=== PATIENT | female | born 1945 | race Caucasian/White ===

== ENCOUNTER 2016-11-17 08:17 | Emergency (ER) | payer OTHER ==
[~2016-11-17] VITALS: Ht 170.2 cm; Wt 100.2 kg
[~2016-11-17 08:17] MED LIST: CYMBALTA 30 MG30 MG PO; DICLOFENAC SOD75 MG PO; INSULIN HUMA100 U/ML SC; LEVEMIR100 U/ML SC; LIPITOR 10MG10 MG PO; LISINOPRIL20 MG PO; METFORMIN1000 MG PO; PERCOCET 325 MG1 TA2 PO; PRED FORTE 5 ML5 ML OPH; PROTONIX 40MG T40 MG PO
--- NOTE | 2016-11-17 09:50 | ED EYE COMPLAINT ---
History of Present Illness General Chief Complaint: Eye Problems Stated Complaint: DIFFICULTY WITH VISION Source: patient Exam Limitations: no limitations Vital Signs & Intake/Output Vital Signs & Intake/Output Vital Signs Date Time Temp Pulse Resp B/P B/P Pulse O2 O2 Flow FiO2 Mean Ox Delivery Rate 11/17 1043 97.0 80 18 168/74 96 Room Air 11/17 0901 99 Room Air 11/17 0821 96.8 87 18 158/69 95 Room Air Room Air Allergies Coded Allergies: Sulfa (Sulfonamide Antibiotics) (HIVES 09/07/15) prochlorperazine (THROAT CLOSES 09/07/15) Reconcile Medications Atorvastatin (Atorvastatin Calcium) 10 MG TAB 1 TAB PO DAILY CHOLESTEROL ( Reported) Diclofenac Sodium 75 MG ECT 1 TAB PO BID PAIN (Reported) Duloxetine Hydrochloride (Cymbalta) 30 MG CAP 1 CAP PO DAILY NERVE PAIN ( Reported) Insulin Detemir (Levemir) 100 U/ML SAUL 12 UNITS SC BID diabetes (Reported) Take in the morning and in the evening Insulin Human Regular 100 U/ML SAUL Unknown UNITS SC TIDAC GLUCOSE CONTROL ( Reported) BLOOD SUGAR # OF UNITS 80-120 NONE 121-150 2 UNITS 151-200 3 UNITS 202-250 4 UNITS 251-300 5 UNITS 301-350 6 UNITS 351-400 7 UNITS >400 8 units and Call Lisinopril 20 MG TAB 1 TAB PO QPM BP (Reported) OXYCODONE HCL/ACETAMINOPHEN (Percocet 5-325 MG Tablet) 325 MG/5 MG TAB 1-2 TAB PO Q4P PRN PAIN Pantoprazole Sodium (Protonix) 40 MG TAB 1 TAB PO DAILY ACID REFLUX (Reported ) Prednisolone Acetate (Pred Forte) 5 ML AARON 1 DROP OPH DAILY NEUROPATHY ( Reported) Triage Note: TRIAGE: 71 Y/O FEMALE PRESENTS C/O VISUAL PROBLEMS - REPORTS EXCESSIVE COUGHING LAST NIGHT. AFTER EPISODES OF COUGHING, REPORTS BLACK SWIRLS IN THE RIGHT EYE AND CLOUDINESS IN HER VISUAL FIELD. INSTRUCTED NOT TO RUB HER WEEPING EYE, RATHER TO GENTLY BLOT THE AREA BENEATH HER EYE. Triage Nurses Notes Reviewed? yes Onset: Abrupt Duration: constant, continues in ED Injury Environment: home Severity: moderate HPI: Patient presents for evaluation of an altered vision began at about 9 to 10:00 last night after a coughing and choking episode. Since that point she saw "black swirls" in her right eye vision. About 2 hours later, the right eye vision became clouded. Today patient states that she continues to see the "black swirls" along with the clouded vision. Past History Travel History Traveled to [place] past 21 day No Medical History Any Pertinent Medical History? see below for history EENT: tonsil infections, DIABETIC RETINOPATHY Cardiovascular: hypertension, hyperlipidemia Gastrointestinal: GERD Musculoskeletal: chronic back pain Endocrine: diabetes History of MRSA: No History of VRE: No History of CDIFF: No Pneumonia Vaccine: 10/23/05 Influenza Vaccine: 04/02/13 Surgical History Surgical History: non-contributory Psychosocial History Who do you live with Family Services at Home None What is your primary language Congolese Tobacco Use: Never used ETOH Use: denies use Illicit Drug Use: denies illicit drug use Family History Hx Contributory? No Review of Systems Review of Systems Constitutional: Reports: no symptoms. Eyes: Reports: see HPI. Ear: Reports: no symptoms. Nose: Reports: no symptoms. Mouth: Reports: no symptoms. Throat: Reports: no symptoms. Respiratory: Reports: no symptoms. Cardiovascular: Reports: no symptoms. GI: Reports: no symptoms. Genitourinary: Reports: no symptoms. Musculoskeletal: Reports: no symptoms. Skin: Reports: no symptoms. Neurological/Psychological: Reports: no symptoms. Hematologic/Endocrine: Reports: no symptoms. Immunologic/Allergic: Reports: no symptoms. All Other Systems: Reviewed and Negative Physical Exam General Appearance: well developed/nourished, mild distress (appears anxious) General Inspection: normal inspection General Inspection: tearful, mild conjunctival injection Eyelid: normal inspection Cornea: normal inspection EOM: intact Physical Exam Head: atraumatic, normal appearance Nose: normal inspection Mouth/Throat: MOIST MUCOSA Neck: supple, full range of motion Cardiovascular/Respiratory: no respiratory distress Neurologic/Psych: awake, alert, normal gait, normal mood/affect Skin: warm/dry Comments: Slit lamp examination: Right pupil is reactive, anterior chamber is deep and clear. Funduscopic examination: unable to visualize the retina clearly ( funduscopic of the left retina was limited but I was able to visualize vascular structures). Progress Differential Diagnosis: conjunctivitis, detached retina, glaucoma, globe rupture Plan of Care: Orders Procedure Date/time Status ED- VISUAL ACUITY 11/17 0950 Active Departure Departure Disposition: HOME OR SELF CARE Condition: Stable Clinical Impression Primary Impression: Retinal hemorrhage of right eye Referrals: DYLAN LONG DO (PCP/Family) Additional Instructions: Elevate your head to 45 when sleeping. Avoid aspirin or anti-inflammatory medications such as Motrin or Advil. Follow-up with your data keyer tomorrow. Return if any concerns or sudden worsening. Thank you for choosing the [facility] for your care. It was a pleasure to serve you today. Juliocesar Brooks M.D. [facility] Departure Forms: Customer Survey General Discharge Information
[2016-11-17 10:43] VITALS: BP 168/74
== END 2016-11-17 12:38 ==
LOC: ERH 08:17
DX: H35.61 Retinal hemorrhage, right eye (principal)